=== PATIENT | male | born 1985 | race African-American/Black ===

== ENCOUNTER 2017-04-20 17:57 | Emergency (ER) | payer OTHER ==
[~2017-04-20] VITALS: Ht 190.5 cm; Wt 120.7 kg
[~2017-04-20 17:57] MED LIST: MOBIC15 MG PO; PENICILLIN V P500 MG PO; ZOFRAN ODT4 MG PO
[2017-04-20] MEDS ORDERED: NORCO 5-325 TA1 EACH PO (19:02)
[2017-04-20 19:55] VITALS: BP 133/94
== END 2017-04-20 19:55 | disposition home or self-care (01) ==
LOC: ER 17:57
DX: S93.402A Sprain of unspecified ligament of left ankle, initial encounter (principal); M25.561 Pain in right knee; M25.571 Pain in right ankle and joints of right foot; Z88.6 Allergy status to analgesic agent; X58.XXXA Exposure to other specified factors, initial encounter; Y93.89 Activity, other specified; Y92.89 Other specified places as the place of occurrence of the external cause; Y99.8 Other external cause status

== ENCOUNTER 2017-09-18 14:30 | Emergency (ER) | payer OTHER ==
[~2017-09-18] VITALS: Ht 190.5 cm; Wt 120.2 kg
--- NOTE | ~2017-09-18 | EKG ---
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 : 1985 Requested By: Allen Cortez Order Number: [id number] MD: Rakesh Li Measurements Intervals [place] Rate: 102 P: 76 SD: 149 QRS: 8 QRSD: 95 T: -31 QT: 394 QTc: 514 Interpretive Statements Sinus tachycardia Borderline T abnormalities, diffusely Prolonged QT interval No previous ECG available for comparison Electronically Signed On 09-18-2017 16:47:31 [employer] by Rakesh Li [email or web address] <ELECTRONICALLY SIGNED> By: Rakesh Li MD, [facility] 09/18/17 1647 [id number] 1541 Rakesh Li MD, FACC /EPI
[~2017-09-18 14:30] MED LIST changes: +NORCO 5-325 TA1 EACH PO
[2017-09-18 15:15] LABS: ABSOLUTE NEUTROPHILS 3.5 thou/uL (1.4-8.2); BASOPHILS 0.6 % (0.0-2.0); EOSINOPHILS 0.5 % (0.0-3.0); HEMATOCRIT 49.5 % (42.0-52.0); HEMOGLOBIN 17.3 gm/dL (14.0-18.0); LYMPHOCYTES 31.7 % (24.0-44.0); MCV 85.7 fL (80.0-100.0); MONOCYTES 8.7 % (1.0-8.0); PLATELET COUNT 269 thou/uL (150-400); POLYS 58.5 % (36.0-66.0); RBC 5.77 mil/uL (4.50-6.00); RDW 13.5 % (10.5-14.5); WBC 6.1 thou/uL (4.0-11.0)
[2017-09-18 15:24] LABS: CALCIUM 9.2 mg/dL (8.5-10.1); CREATININE 1.4 mg/dL (0.7-1.3); POTASSIUM 3.7 mmol/L (3.5-5.1)
[2017-09-18] MEDS ORDERED: LISINOPRIL5 MG PO (16:08)
== END 2017-09-18 16:56 | disposition home or self-care (01) ==
LOC: ER 14:30
PROVIDERS: Emergency Medicine
DX: R03.0 Elevated blood-pressure reading, without diagnosis of hypertension (principal); E86.0 Dehydration; Z88.6 Allergy status to analgesic agent

== ENCOUNTER 2017-10-09 12:17 | Emergency (ER) | payer OTHER ==
[~2017-10-09] VITALS: Ht 190.5 cm; Wt 117.9 kg
[~2017-10-09 12:17] MED LIST changes: +LISINOPRIL5 MG PO
[2017-10-09 12:48] LABS: URINE BILIRUBIN 1+ (Negative); URINE BLOOD 1+ (Negative); URINE CLARITY CLEAR; URINE COLOR YELLOW; URINE GLUCOSE-RANDOM* NEGATIVE (Negative); URINE KETONES TRACE (Negative); URINE LEUKOCYTES NEGATIVE (Negative); URINE NITRITE NEGATIVE (Negative); URINE PROTEIN (DIPSTICK) TRACE (Negative); URINE SPECIFIC GRAVITY >= 1.030 (1.005-1.035); URINE UROBILINOGEN 0.2 E.U./dl (0.2-1.0)
[2017-10-09 12:53] LABS: ICTOTEST (BILI CONFIRMATORY) Negative (Negative)
[2017-10-09 13:02] LABS: BACTERIA None Seen /HPF (None Seen); CASTS None Seen /LPF (None Seen); CRYSTALS None Seen /LPF (None Seen); MUCUS >6 Heavy strn/LPF (None Seen); SQUAMOUS 0-3 Few /LPF (0-3); URINE RBC 0-2 Rare /HPF (0-2); URINE WBC 0-5 Rare /HPF (0-5)
[2017-10-09 13:04] LABS: ABSOLUTE NEUTROPHILS 6.9 thou/uL (1.4-8.2); BASOPHILS 0.5 % (0.0-2.0); EOSINOPHILS 1.2 % (0.0-3.0); HEMOGLOBIN 16.8 gm/dL (14.0-18.0); LYMPHOCYTES 20.3 % (24.0-44.0); MCH 29.7 pg (26.0-34.0); MCHC 34.3 g/dL (28.0-37.0); MCV 86.6 fL (80.0-100.0); MONOCYTES 8.8 % (1.0-8.0); PLATELET COUNT 352 thou/uL (150-400); POLYS 69.2 % (36.0-66.0); RBC 5.66 mil/uL (4.50-6.00); RDW 13.7 % (10.5-14.5); WBC 9.9 thou/uL (4.0-11.0)
[2017-10-09 13:12] LABS: CALCIUM 9.5 mg/dL (8.5-10.1); CREATININE 1.5 mg/dL (0.7-1.3); POTASSIUM 3.8 mmol/L (3.5-5.1)
[2017-10-09 13:18] LABS: ALBUMIN 4.3 g/dL (3.4-5.0); TOTAL BILIRUBIN 1.7 mg/dL (<0.1-1.0); TOTAL PROTEIN 8.9 g/dL (6.4-8.2)
[2017-10-09] MEDS ORDERED: MIRALAX17 GM PO (14:06)
[2017-10-09] MEDS ORDERED: PROCTOCREAM-HC30 GM TOP ×2 (14:06→14:08)
== END 2017-10-09 14:24 | disposition home or self-care (01) ==
LOC: ER 12:17
PROVIDERS: Physician Assistant
DX: K64.9 Unspecified hemorrhoids (principal); I12.9 Hypertensive chronic kidney disease with stage 1 through stage 4 chronic kidney disease, or unspecified chronic kidney disease; N18.9 Chronic kidney disease, unspecified; Z88.6 Allergy status to analgesic agent

== ENCOUNTER 2017-10-24 08:42 | Emergency (ER) | payer OTHER ==
[~2017-10-24] VITALS: Ht 190.5 cm; Wt 117.9 kg
[~2017-10-24 08:42] MED LIST changes: +MIRALAX17 GM PO; +PROCTOCREAM-HC30 GM TOP
[2017-10-24] MEDS ORDERED: LISINOPRIL5 MG PO (08:53)
[2017-10-24] MEDS ORDERED: MOBIC7.5 MG PO (09:01)
[2017-10-24] MEDS ORDERED: PENICILLIN V P500 MG PO (09:01)
== END 2017-10-24 09:13 | disposition home or self-care (01) ==
LOC: ER 08:42
DX: I10 Essential (primary) hypertension (principal); F41.9 Anxiety disorder, unspecified; K00.8 Other disorders of tooth development; Z88.6 Allergy status to analgesic agent

== ENCOUNTER 2019-09-26 16:22 | Emergency (ER) | payer OTHER ==
[~2019-09-26] VITALS: Ht 190.5 cm; Wt 113.4 kg
[~2019-09-26 16:22] MED LIST changes: +MOBIC7.5 MG PO
[2019-09-26 16:23] VITALS: BP 168/110
[2019-09-26] MEDS ORDERED: AMOXICILLIN 50500 MG PO (17:53)
[2019-09-26] MEDS ORDERED: IBU600 MG PO (17:53)
== END 2019-09-26 17:42 | disposition home or self-care (01) ==
LOC: ER 16:22
DX: K02.9 Dental caries, unspecified (principal); I10 Essential (primary) hypertension; Z88.6 Allergy status to analgesic agent